=== PATIENT | male | born 1980 | race African-American/Black ===

== ENCOUNTER 2018-05-19 20:04 | Inpatient (IN) | payer OTHER ==
[2018-05-19] MEDS ORDERED: HEPARIN 10,000 UNIT/10 ML MDV (1,000 UNIT/ML) IVP ONE (21:52)
[2018-05-19] MEDS ORDERED: IOPAMIDOL (ISOVUE 370) 100 ML BTL IV ONE (21:53)
--- NOTE | 2018-05-19 21:54 | CPEKG ---
Test Reason : OPEN Blood Pressure : / mmHG Vent. Rate : 082 BPM Atrial Rate : 082 BPM P-R Int : 157 ms QRS Dur : 084 ms QT Int : 357 ms P-R-T Axes : 063 062 048 degrees QTc Int : 417 ms Sinus rhythm Consider left ventricular hypertrophy Confirmed by Wiley Ruiz ([id number]) on 05/19/2018 9:54:35 PM Referred By: Confirmed By:Wiley Ruiz
[2018-05-19] MEDS ORDERED: HEPARIN/DEXTROSE 25,000 UNIT/500 ML BAG ONE (21:56)
[2018-05-19 21:58] LABS: PLATELET COUNT 193 10^3/uL (150-400)
--- NOTE | 2018-05-19 22:00 | EDPHY ---
H & P Stated Complaint: LLE swelling/tightness x 2 days with 1 month of cramping. no injury/pain. Time Seen by Provider: 05/19/18 20:15 HPI/ROS: This patient describes 2 day history of left leg swelling after antecedent few weeks of mild cramping in the leg. He explains that he had a respiratory illness in March around March 31 the when she was bed ridden for few days due to his symptoms hand thereafter has had a persistent feeling of mild chest congestion though the cough is resolved. He noticed mild intermittent cramping his left leg since that time and again significant swelling increased over the past 48 hr. He reports peak intensity leg of 6/10 currently 3/10 at rest. He has never had this occur to him before. He is accompanied by his girlfriend and came here by private vehicle for further evaluation. ROS: Constitutional: No fevers or chills. No fatigue. HEENT: URI symptoms have resolved. No other complaints pulmonary: Feeling of ongoing chest congestion. Denies any coughing or hemoptysis. Had dyspnea for the 1st 10 days or so of his respiratory illness and feels the dyspnea has now nearly resolved. Cardiovascular: No lightheadedness. No heart palpitations. He feels there is slight pink discoloration to the affected lower extremity GI: No nausea vomiting or abdominal pain : No complaints Endocrine: No complaints 10 point review of symptoms is performed and otherwise negative with exception of pertinent positives and negatives listed in HPI and ROS Source: Patient Exam Limitations: No limitations - Personal History Current Tetanus Diphtheria and Acellular Pertussis (TDAP): No - Medical/Surgical History Hx Asthma: No Hx Chronic Respiratory Disease: No Hx Diabetes: No Hx Cardiac Disease: No Hx Renal Disease: No Hx Cirrhosis: No Hx Alcoholism: No Hx HIV/AIDS: No Hx Splenectomy or Spleen Trauma: No Other PMH: htn undiagnosed - Family History Significant Family History: Hypertension (His mother has a history of hypertension), Vascular disease (Patient please his sister had a DVT) - Social History Smoking Status: Never smoked Alcohol Use: Occasionally Drug Use: None - Physical Exam Exam: General Appearance: Pleasant black male Alert, no distress. Eyes: Pupils equal and round no pallor or injection. ENT, Mouth: Mucous membranes moist. Respiratory: There are no retractions, lungs are clear to auscultation. Cardiovascular: Regular rate and rhythm. No murmur gallop rub. He maintains 2 + symmetric femoral and popliteal pulses bilaterally in lower extremities. He has significant edema to the left lower extremity with positive Homans sign mild pitting. The left calf measures 40 cm 10 cm below the tibial tuberosity where as the right calf measures 37 cm in circumference at the same location. Gastrointestinal: Abdomen is soft and nontender, no masses, bowel sounds normal. Neurological: GCS 15 Skin: Warm and dry, no rashes. Musculoskeletal: Neck is supple nontender. Extremities are symmetrical, full range of motion. Psychiatric: Mood and affect are normal DIFFERENTIAL DIAGNOSIS: After history and physical exam differential diagnosis was considered for DVT, PE, lymphoma, hematologic dyscrasias, sickle cell disease Constitutional: Initial Vital Signs Temperature (C) 37.1 C 05/19/18 20:19 Heart Rate 98 05/19/18 20:19 Respiratory Rate 14 05/19/18 20:19 Blood Pressure 155/102 H 05/19/18 20:19 O2 Sat (%) 97 05/19/18 20:19 O2 Delivery Mode Room Air Allergies/Adverse Reactions: No Known Allergies Allergy (Unverified 05/19/18 20:18) Home Medications: Medication Instructions Recorded NK [No Known Home Meds] 05/19/18 Medical Decision Making - Diagnostics EKG Interpretation: 12 lead EKG performed at 9:48 p.m. Indication feeling of congestion in chest with DVT-evaluate for right heart strain Sinus rhythm at 82 Intervals: Normal throughout [place]: P of 63, QRS of 62, T of 48 degrees Borderline for LVH by voltage criteria Overall assessment sinus rhythm with potential ventricular hypertrophy Imaging Results: Imaging Impressions Extremity Venous Study 05/19/18 20:47 Impression: There is incompletely-occlusive clot throughout the left lower leg, from the level of the left common femoral vein to the popliteal vein. Findings were discussed with JENNIFER BARROSO MD at 21:40, on 05/19/2018. Chest/Thorax CTA 05/19/18 21:44 Impression: Moderate-volume pulmonary artery thromboemboli, with the greatest degree of involvement in the left lower lobe. Findings were discussed with JENNIFER BARROSO MD at 22:40, on 05/19/2018. CT angio chest reveals moderate volume pulmonary embolism on the left. No pulmonary infarct. I spoke with Dr. Dirk Smith regarding this finding. Imaging: Discussed imaging studies w/ residential team leader Radiologist (I spoke with Dr. Dirk Smith about patient's ultrasound of lower extremity) ED Course/Re-evaluation: After conversation with the radiologist regarding significant clot burden from proximal common femoral to popliteal and resultant edema in this young active patient. We feel that he would benefit from interventional Radiology consult for potential thrombolysis of this clot in the morning. I reviewed the patient's labs-normal CBC, normal coags, normal basic metabolic panel exception of a borderline potassium of 3.[address] Shaw, hospitalist accepts this patient with plan for heparin overnight and consult with interventional Radiology in the morning. IV heparin 80 milligrams/kilogram I spoke with naun Voist in addition to relate the additional diagnosis of moderate volume pulmonary embolism since this information was not initially available-study pending I spoke with Dr. Shaw. We decided to change the patient to PCU bed given this finding. I counseled patient regarding this finding as well. The patient is stable at the time of transfer by EMS at 11:00 p.m. And I answered all of his questions prior to admission - Data Points Laboratory Results: Laboratory Results 05/19/18 20:52 05/19/18 05/19/18 05/19/18 21:42 20:52 20:52 WBC 6.26 10^3/uL 10^3/uL (3.80-9.50) RBC 4.82 10^6/uL 10^6/uL (4.40-6.38) Hgb 15.6 g/dL g/dL (13.7-17.5) Hct 43.5 % % (40.0-51.0) MCV 90.2 fL fL (81.5-99.8) MCH 32.4 pg pg (27.9-34.1) MCHC 35.9 g/dL g/dL (32.4-36.7) RDW 12.4 % % (11.5-15.2) Plt Count 193 10^3/uL 10^3/uL (150-400) MPV 9.9 fL fL (8.7-11.7) Neut % (Auto) 47.3 % % (39.3-74.2) Lymph % (Auto) 40.4 % % (15.0-45.0) [place] % (Auto) 8.6 % % (4.5-13.0) Eos % (Auto) 2.9 % % (0.6-7.6) Baso % (Auto) 0.5 % % (0.3-1.7) Nucleat RBC Rel Count 0.0 % % (0.0-0.2) Absolute Neuts (auto) 2.96 10^3/uL 10^3/uL (1.70-6.50) Absolute Lymphs (auto) 2.53 10^3/uL 10^3/uL (1.00-3.00) Absolute Monos (auto) 0.54 10^3/uL 10^3/uL (0.30-0.80) Absolute Eos (auto) 0.18 10^3/uL 10^3/uL (0.03-0.40) Absolute Basos (auto) 0.03 10^3/uL 10^3/uL (0.02-0.10) Absolute Nucleated RBC 0.00 10^3/uL 10^3/uL (0-0.01) Immature Gran % 0.3 % % (0.0-1.1) Immature Gran # 0.02 10^3/uL 10^3/uL (0.00-0.10) PT 14.3 SEC SEC (12.0-15.0) INR 1.09 (0.83-1.16) APTT 29.2 SEC SEC (23.0-38.0) POC Sodium 139 mEq/L mEq/L (135-145) POC Potassium 3.2 mEq/L L mEq/L (3.3-5.0) POC Chloride 101.0 mEq/L mEq/L (97-110) POC Total CO2 26 mEq/L mEq/L (22-31) POC BUN 8 mg/dL mg/dL (7-23) POC Creatinine 1.0 mg/dL mg/dL (0.7-1.3) POC Glucose 83 mg/dL mg/dL (70-100) POC Calcium 9.5 mg/dL mg/dL (8.5-10.4) Medications Given: Discontinued Medications Heparin Sodium (Porcine) (Heparin Injection) 0 unit IVP EDNOW ONE Stop: 05/19/18 21:53 Last Admin: 05/19/18 22:02 Dose: 6,000 units Point of Care Test Results: Chemistry 05/19/18 21:42 POC Sodium 139 mEq/L mEq/L (135-145) POC Potassium 3.2 mEq/L L mEq/L (3.3-5.0) POC Chloride 101.0 mEq/L mEq/L (97-110) POC Total CO2 26 mEq/L mEq/L (22-31) POC BUN 8 mg/dL mg/dL (7-23) POC Creatinine 1.0 mg/dL mg/dL (0.7-1.3) POC Glucose 83 mg/dL mg/dL (70-100) POC Calcium 9.5 mg/dL mg/dL (8.5-10.4) Urine Dip Collection Date 05/19/18 Collection Time 21:19 Specific [place] (1.002-1.030) 1.010 PH (5.0-7.5) 6.5 Leukocytes (Negative) Trace Nitrites (Negative) Negative Protein (Negative) Negative Glucose (Negative) Negative Ketones (Negative) Negative Urobilnogen (0.2-1.0 EU) 0.2 Bilirubin (Negative) Negative Blood (Negative) Trace Departure - Departure Disposition: [facility] Acute Clinical Impression: Lower extremity deep venous thrombosis Qualifiers: Affected thrombotic vein of extremity: unspecified vein of extremity Chronicity : acute Laterality: left Qualified Code(s): I82.402 - Acute embolism and thrombosis of unspecified deep veins of left lower extremity Pulmonary embolism Qualifiers: Pulmonary embolism type: other Chronicity: acute Acute cor pulmonale presence: without acute cor pulmonale Qualified Code(s): I26.99 - Other pulmonary embolism without acute cor pulmonale Condition: Good
[2018-05-19 22:06] LABS: INR 1.09 (0.83-1.16); PROTIME(PATIENT) 14.3 SEC (12.0-15.0)
[2018-05-19] MEDS ORDERED: ACETAMINOPHEN 325 MG TAB PO PRN (23:34)
[2018-05-19] MEDS ORDERED: ONDANSETRON DISINTEGRATING 4 MG TAB PO PRN (23:34)
[2018-05-19] MEDS ORDERED: ONDANSETRON 4 MG/2 ML VIAL IVP PRN (23:34)
[2018-05-19] MEDS ORDERED: HEPARIN 10,000 UNIT/10 ML MDV (1,000 UNIT/ML) IVP PRN (23:35)
[2018-05-19] MEDS ORDERED: HEPARIN/DEXTROSE 500 ML IV SCH (23:45)
--- NOTE | 2018-05-20 00:04 | PDGENHP ---
History and Physical - Chief Complaint L leg swelling - History of Present Illness 37 yo M w/ no PMHx presents with L leg swelling. Patient tells me he first noticed L calf discomfort about one month ago. This discomfort came and went over the last several weeks. Then, this week, he began to note leg swelling, which is new. It was the leg swelling that led him to go to the [facility] for evaluation. In the [facility] evaluations revealed a large LLE DVT and also moderate volume pulmonary emboli. The patient denies chest pain or shortness of breath. He also denies trauma, surgery, or prolonged immobilization prior to onset of symptoms. Of note, he does state his sister has a history of blood clots. Case discussed with ED physician Dr. Barroso; records reviewed in EMR. History Information - Allergies/Home Medication List Allergies/Adverse Reactions: No Known Allergies Allergy (Unverified 05/19/18 20:18) Home Medications: NK [No Known Home Meds] 05/19/18 [Last Taken Unknown] I have personally reviewed and updated: family history, medical history - Past Medical History no pertinent PMH - Surgical History Reports: no pertinent surgical hx - Family History Additional family history: Sister has had blood clots - Social History Smoking Status: Never smoked Alcohol Use: Occasionally Drug Use: None Review of Systems Review of Systems: ROS: 10pt was reviewed & negative except for what was stated in HPI & below Physical Exam Physical Exam: Temp Pulse Resp BP Pulse Ox 36.8 C 86 19 125/93 H 95 05/19/18 23:30 05/19/18 23:30 05/19/18 23:30 05/19/18 23:30 05/19/18 23:30 O2 (L/minute) 1 Constitutional: no apparent distress, not in pain Eyes: PERRL, EOMI Ears, Nose, Mouth, Throat: moist mucous membranes, no oral mucosal ulcers Cardiovascular: regular rate and rhythym, no murmur, rub, or gallop, edema (LLE) Respiratory: no respiratory distress, clear to auscultation Gastrointestinal: normoactive bowel sounds, soft, non-tender abdomen Skin: warm, normal color, other (LLE swelling) Musculoskeletal: full muscle strength, no muscle tenderness Neurologic: AAOx3, CN II-XII Intact Psychiatric: interacting appropriately, not anxious Lab Data & Imaging Review 05/19/18 20:52 WBC 6.26 10^3/uL (3.80-9.50) 05/19/18 20:52 RBC 4.82 10^6/uL (4.40-6.38) 05/19/18 20:52 Hgb 15.6 g/dL (13.7-17.5) 05/19/18 20:52 Hct 43.5 % (40.0-51.0) 05/19/18 20:52 MCV 90.2 fL (81.5-99.8) 05/19/18 20:52 MCH 32.4 pg (27.9-34.1) 05/19/18 20:52 MCHC 35.9 g/dL (32.4-36.7) 05/19/18 20:52 RDW 12.4 % (11.5-15.2) 05/19/18 20:52 Plt Count 193 10^3/uL (150-400) 05/19/18 20:52 MPV 9.9 fL (8.7-11.7) 05/19/18 20:52 Neut % (Auto) 47.3 % (39.3-74.2) 05/19/18 20:52 Lymph % (Auto) 40.4 % (15.0-45.0) 05/19/18 20:52 [place] % (Auto) 8.6 % (4.5-13.0) 05/19/18 20:52 Eos % (Auto) 2.9 % (0.6-7.6) 05/19/18 20:52 Baso % (Auto) 0.5 % (0.3-1.7) 05/19/18 20:52 Nucleat RBC Rel Count 0.0 % (0.0-0.2) 05/19/18 20:52 Absolute Neuts (auto) 2.96 10^3/uL (1.70-6.50) 05/19/18 20:52 Absolute Lymphs (auto) 2.53 10^3/uL (1.00-3.00) 05/19/18 20:52 Absolute Monos (auto) 0.54 10^3/uL (0.30-0.80) 05/19/18 20:52 Absolute Eos (auto) 0.18 10^3/uL (0.03-0.40) 05/19/18 20:52 Absolute Basos (auto) 0.03 10^3/uL (0.02-0.10) 05/19/18 20:52 Absolute Nucleated RBC 0.00 10^3/uL (0-0.01) 05/19/18 20:52 Immature Gran % 0.3 % (0.0-1.1) 05/19/18 20:52 Immature Gran # 0.02 10^3/uL (0.00-0.10) 05/19/18 20:52 PT 14.3 SEC (12.0-15.0) 05/19/18 20:52 INR 1.09 (0.83-1.16) 05/19/18 20:52 APTT 29.2 SEC (23.0-38.0) 05/19/18 20:52 POC Sodium 139 mEq/L (135-145) 05/19/18 21:42 POC Potassium 3.2 mEq/L (3.3-5.0) L 05/19/18 21:42 POC Chloride 101.0 mEq/L (97-110) 05/19/18 21:42 POC Total CO2 26 mEq/L (22-31) 05/19/18 21:42 POC BUN 8 mg/dL (7-23) 05/19/18 21:42 POC Creatinine 1.0 mg/dL (0.7-1.3) 05/19/18 21:42 POC Glucose 83 mg/dL (70-100) 05/19/18 21:42 POC Calcium 9.5 mg/dL (8.5-10.4) 05/19/18 21:42 Imaging Review: Imaging Impressions Extremity Venous Study 05/19/18 20:47 Impression: There is incompletely-occlusive clot throughout the left lower leg, from the level of the left common femoral vein to the popliteal vein. Findings were discussed with JENNIFER BARROSO MD at 21:40, on 05/19/2018. Chest/Thorax CTA 05/19/18 21:44 Impression: Moderate-volume pulmonary artery thromboemboli, with the greatest degree of involvement in the left lower lobe. Findings were discussed with JENNIFER BARROSO MD at 22:40, on 05/19/2018. Assessment & Plan Assessment: 37 yo M presents with unprovoked LLE DVT and moderate volume pulmonary emboli. Plan: 1. LLE DVT - US reveals incompletely-occlusive clot throughout the left lower leg, from the level of the left common femoral vein to the popliteal vein. Symptoms have been presents for about a month and worse over the last week with new onset swelling. He denies any precipitation factors such as trauma, surgery , or prolonged immobilization. His sister has a history of blood clots. - Heparin gtt - IR consult placed to consider thrombolysis noting extent of clot 2. Moderate volume pulmonary emboli - Hemodynamically stable and asymptomatic at this time. ECG without signs of R heart strain. - Will check troponin, BNP - Heparin gtt as above Diet - NPO @ CA Code - Full Ppx - Hep gtt Dispo - Admit under observation status
[2018-05-20 04:09] LABS: PLATELET COUNT 206 10^3/uL (150-400)
[2018-05-20] MEDS ORDERED: NALOXONE HCL 0.4 MG/ML INJ IVP PRN (08:00)
[2018-05-20] MEDS ORDERED: ALTEPLASE 2 MG VIAL IVP PRN (08:00)
[2018-05-20] MEDS ORDERED: FLUMAZENIL 0.5 MG/5 ML MDV IVP PRN (08:00)
[2018-05-20] MEDS ORDERED: HEPARIN 10,000 UNIT/10 ML MDV (1,000 UNIT/ML) IVP PRN (08:00)
[2018-05-20] MEDS ORDERED: fentaNYL 100 MCG/2 ML INJ IVP PRN (08:00)
[2018-05-20] MEDS ORDERED: MIDAZOLAM 2 MG/2 ML VIAL IVP PRN (08:00)
--- NOTE | 2018-05-20 12:15 | ASMTCMCOM ---
CM Note CM Note Notes: 05/20/2018 Case Management Note Discussed pt during rounds this morning. Pt girlfriend present in the room. Pt admitted for DVT in left leg and PE. Pt needs PCP. Encouraged pt to consult with insurance to pick a provider that is in network. There are no case management d/c needs identified d/t pt age, family support and employment status. There are no therapy evals ordered at this time. Case Management d/c poc: independent with follow up as directed. Case Management available if needs change. Date Signed: 05/20/2018 12:15 PM Electronically Signed By:Candida Willis RN
--- NOTE | 2018-05-20 13:01 | HOSPPROG ---
Hospitalist Progress Note Assessment/Plan: Healthy 37-year-old man presents with large volume DVT in his left lower extremity with swelling as well as moderate volume PE. He was placed on heparin overnight with some improvement in his swelling. # unprovoked DVT and PE, large volume possibly extending into his iliac vein. Discussed with Dr. Cavazos who will review the of imaging and discussed whether tPA lysis would be beneficial to him given the extent of his DVT. * Consultation with interventional radiology * Continue heparin for now * Plan DC tomorrow depending on findings today. * Will likely move him to either warfarin or a newer anticoagulant. * Anti coag panel pending * He needs to establish care here in town for PCP. Patient will need additional midnight stay given evaluation for possible further treatment of large DVT and PE. Subjective: No chest pain or shortness of breath still has some discomfort in his left lower leg. He believes he has a family history of clots in his mother and sister. Patient new to [facility] and chart review Objective: Vital Signs Temp Pulse Resp BP Pulse Ox 36.6 C 66 16 129/86 H 93 05/20/18 12:31 05/20/18 12:31 05/20/18 12:31 05/20/18 12:31 05/20/18 12:31 Laboratory Results 05/20/18 03:20 05/20/18 03:20 05/19/18 05/20/18 05/21/18 05:59 05:59 05:59 Intake Total 862 Balance 862 PT 14.3 SEC (12.0-15.0) 05/19/18 20:52 INR 1.09 (0.83-1.16) 05/19/18 20:52 - Physical Exam Constitutional: no apparent distress Eyes: PERRL, anicteric sclera Ears, Nose, Mouth, Throat: moist mucous membranes Cardiovascular: regular rate and rhythym, no murmur, rub, or gallop, edema ( Left lower extremity) Respiratory: no respiratory distress, clear to auscultation Gastrointestinal: normoactive bowel sounds Genitourinary: no bladder fullness Skin: warm Musculoskeletal: full muscle strength Neurologic: AAOx3 ICD10 Worksheet Patient Problems: Problems Problem Status Onset Lower extremity deep venous thrombosis Acute Pulmonary embolism Acute
--- NOTE | 2018-05-20 14:08 | PDMN ---
Medical Necessity Medical necessity: MCG : M350 DVT of lower extremities A-4 days: Large volumn DVT in LLE with swelling and mod volumn PE. Doppler shows incompletely- occlusive clot throughout the LLL from level of L common femoral vein to the popliteal vein. Pt on Heparin drip, with IR consult pending, status changed to INPT 05/20/18 for ongoing med nec care of DVT and PE with further eval, tx needed
[2018-05-20] MEDS ORDERED: NALOXONE HCL 0.4 MG/ML INJ ONE (15:08)
[2018-05-20] MEDS ORDERED: FLUMAZENIL 0.5 MG/5 ML MDV IVP ONE (15:09)
[2018-05-20] MEDS ORDERED: fentaNYL 100 MCG/2 ML INJ ONE (15:09)
[2018-05-20] MEDS ORDERED: MIDAZOLAM 2 MG/2 ML VIAL ONE (15:09)
[2018-05-20] MEDS ORDERED: ALTEPLASE 5 MG in NS 100 ML IV SCH (16:00)
[2018-05-20] MEDS ORDERED: IOPAMIDOL (ISOVUE-300) 100 ML BTL ONE (16:01)
[2018-05-20] MEDS ORDERED: PROMETHAZINE HCL 25 MG/ML INJ IVP PRN (17:30)
[2018-05-20] MEDS ORDERED: HEPARIN/DEXTROSE 500 ML IV SCH (17:30)
[2018-05-20] MEDS ORDERED: LORazepam 1 MG TAB PO PRN (17:30)
--- NOTE | 2018-05-20 17:35 | PDRADPN ---
Radiology Procedure Note Date of Procedure: 05/20/18 Radiologist: Simona Cavazos Anesthesia: IV Sedation Pre-op Diagnosis: LLE CLOT Post-op Diagnosis: SAME Indication: EXTENSIVE CLOT ON US Procedure: LT LEG VENOGRAM; CHAO LYSIS Finding(s): Clot burden disproportionate to amount of leg swelling and tenseness. Clot in SFV, but open iliacs. ? May-Thurner. Inf/Abcess present in the surg proc area at time of surgery?: No
[2018-05-20] MEDS: ALTEPLASE 5 MG in NS 100 ML IV SCH (21:37)
[2018-05-21 05:57] LABS: PLATELET COUNT 160 10^3/uL (150-400)
[2018-05-21] MEDS: ALTEPLASE 5 MG in NS 100 ML IV SCH (07:35)
--- NOTE | 2018-05-21 10:46 | HOSPPROG ---
Hospitalist Progress Note Assessment/Plan: Healthy 37-year-old man presents with large volume DVT in his left lower extremity with swelling as well as moderate volume PE. He underwent venogram to assess for possible clot in illiac and had TPA lysis. # unprovoked DVT and PE, large volume possibly extending into his iliac vein. * Await follow up study today per IR * continue heparin/TPA and transition to eliquis when OK with IR * Likely DC in am. Patient will need additional midnight stay given evaluation for possible further treatment of large DVT and PE. DC tomorrow on eliquis, 10 BID for 6 days, then 5 bid. He can follow up with me in clinic if I am part of his insurance. He needs to find PCP. If he is following up with me, let me know and I can help schedule him. Subjective: feeling better, no cp or sob. leg swelling better, but leg feels weird with TPA. Objective: Vital Signs Temp Pulse Resp BP Pulse Ox 36.8 C 76 17 113/74 98 05/21/18 07:55 05/21/18 10:00 05/21/18 10:00 05/21/18 10:00 05/21/18 10:00 Laboratory Results 05/21/18 05:45 05/20/18 05/21/18 05/22/18 05:59 05:59 05:59 Intake Total 1443 Output Total 305 Balance 1138 PT 14.3 SEC (12.0-15.0) 05/19/18 20:52 INR 1.09 (0.83-1.16) 05/19/18 20:52 - Physical Exam Constitutional: no apparent distress, appears nourished Eyes: PERRL Ears, Nose, Mouth, Throat: moist mucous membranes Cardiovascular: regular rate and rhythym, no murmur, rub, or gallop, edema (LLE , mild) Respiratory: no respiratory distress, clear to auscultation Gastrointestinal: normoactive bowel sounds Genitourinary: No persaud in urethra Skin: warm, normal color Neurologic: AAOx3 Psychiatric: interacting appropriately ICD10 Worksheet Patient Problems: Problems Problem Status Onset Lower extremity deep venous thrombosis Acute Pulmonary embolism Acute
[2018-05-21] MEDS ORDERED: IOPAMIDOL (ISOVUE-370) 150 ML BTL IV ONE (15:37)
[2018-05-21] MEDS ORDERED: fentaNYL 100 MCG/2 ML INJ ONE (16:35)
--- NOTE | 2018-05-21 16:44 | PDRADPN ---
Radiology Procedure Note Date of Procedure: 05/21/18 Radiologist: Harrison Riddle Pre-op Diagnosis: DVT Post-op Diagnosis: DVT Indication: S/P Lysis Procedure: F/U lysis; angioplasty Finding(s): Near complete resolution of thrombus with residual clot mid FV successfully angioplatied resulting in wide patency. No angiographic evidence of high grade May-Thurner. No pressure gradient across iliac veins. Inf/Abcess present in the surg proc area at time of surgery?: No
[2018-05-21] MEDS: APIXABAN 5 MG TAB PO SCH (17:58)
[2018-05-21] MEDS ORDERED: APIXABAN 5 MG TAB PO SCH (21:00)
[2018-05-22] MEDS: APIXABAN 5 MG TAB PO SCH (05:50)
--- NOTE | 2018-05-22 05:53 | GCON ---
PULMONARY CRITICAL CARE CONSULTATION REASON FOR CONSULTATION: DVT/pulmonary embolism. HISTORY: The patient is a very pleasant 37-year-old, who presented to [facility] with left leg swelling. Sonya morris was found to have an extensive DVT. CT angiogram showed moderate volume pulmonary embolism. He wa s transferred to [place] for therapy. He had had lower extremity swelling and discomfort in his leg beginning about a month previously. He had no pulmonary symptoms, no shortness of breath, no chest p ain, and no hemoptysis. There is no previous history of thromboembolic disease; however, his sister apparently has a history of blood clots. The patient was evaluated by Interventional Radiology. An EKOS catheter was placed and thrombolytic therapy given. This was initiated yesterday and completed today. On followup this afternoon, there was near complete resolution of thrombus on the left side, but the vein was widely patent after lysis and angioplasty. There was no evidence of a high-grade May-Thurner Syndrome. The catheter was jesika leila. Following this, the patient was returned to the intensive care unit. He felt his leg was signi ficantly better, less swollen, no longer significantly painful. PAST MEDICAL HISTORY: Unremarkable. He has no medical problems, takes no medications. SOCIAL HISTORY: Negative for significant alcohol. Nonsmoker. FAMILY HISTORY: Positive for thromboembolic disease in his sister. Hereditary factors unknown. REVIEW OF SYSTEMS: Negative except as mentioned above. PHYSICAL EXAMINATION: GENERAL: Reveals a pleasant gentleman in no distress. He is lying comfortabl y in bed in the intensive care unit. VITAL SIGNS: Within normal limits. He does not require supple mental oxygen. HEENT: Normal. CHEST: Clear bilaterally. There are no abnormal sounds, no rub. H EART: Regular in rate and rhythm without murmur or gallop. P2 is normal. ABDOMEN: Within normal l imits. EXTREMITIES: The left lower extremity is approximately 1 inch larger than the right, improve d by report. DATABASE/PREVIOUS RADIOLOGIC STUDIES: As outlined above. Hypercoagulability screening values are pe nding including Factor 5 Leiden, antithrombin 3, protein C and S activities, etc. ASSESSMENT: Deep venous thrombosis/pulmonary embolism. The exact etiology for his thromboembolic di sease is unknown. Hypercoagulability panel has been drawn and is pending. Deep venous thrombosis davis s been aggressively treated with catheter directed thrombolysis and angioplasty. He is doing well. Left lower extremity has improved. He has been started on Eliquis. He is now off heparin. PLAN AND RECOMMENDATIONS: Patient will be kept in the intensive care unit tonight. He can be transf erred to the floor tomorrow if he does not go home. Eliquis will be continued. Immobilization as pe r Interventional Radiology. Further plans and recommendations will be made based on his progress over the next 12 hours. /[id number]/MODL
[2018-05-22 06:16] VITALS: BP 115/74
--- NOTE | 2018-05-22 16:31 | PDDCSUM ---
Discharge Summary Discharge Summary: DISCHARGE SUMMARY FOLLOW-UP ITEMS: Anti cardiolipin antibody and prothrombin antibody both pending at time discharge DATE OF ADMISSION: 05/19/2018 DATE OF DISCHARGE: 05/22/2018 DISCHARGE DIAGNOSES: 1. Unprovoked acute deep venous thrombosis and pulmonary embolism, present on admission CONSULTATIONS: Interventional Radiology, Pulmonary Critical Care PROCEDURES / IMAGING: Venogram and tPA lysis left lower extremity CHIEF COMPLAINT: Acute left lower extremity edema SUBJECTIVE: Patient is feeling well at time of discharge, he denies any lower extremity pain PHYSICAL EXAM ON DISCHARGE: Systolic blood pressure 110, heart rate 60, afebrile neck, satting well on room air, alert awake oriented x3, trace left lower extremity edema without any tenderness to palpation, lungs are clear to auscultation bilaterally LABS ON DISCHARGE: Creatinine 0.9 HOSPITAL COURSE BY PROBLEM: The patient presented with an unprovoked left lower extremity extensive clot requiring venogram and tPA lysis by Interventional Radiology. CT angiogram also demonstrated moderate volume pulmonary embolism most extensively in the left lower lobe. He was placed on IV heparin drip which was temporarily held during tPA lysis of adhesions and then re-initiated with a transition to Eliquis prior to discharge. The affected area on his left lower extremity was re-evaluated with repeat angiogram by Interventional Radiology which demonstrated near complete resolution of the thrombus with some residual clot in the mid femoral vein with no angiographic evidence of high-grade May-Thurner and no pressure gradient across the iliac veins. The patient shall be followed up by his primary care provider, established with Dr. Muhammad during this hospitalization, and Eliquis will be continued in the outpatient setting. DISCHARGE MEDICATIONS: Please see official discharge medication reconciliation sheet in chart , Eliquis starter pack prescribed. Recommended Tylenol for pain control, compression stockings, elevation of left lower extremity. Counseled the patient and his regarding activity recommendations as well as bleeding risks. DISCHARGE INSTRUCTIONS: Please follow up with Dr. Muhammad as scheduled. TIME SPENT: Greater than 30 minutes were spent on direct patient care, as well as discharge planning and preparation.
== END 2018-05-22 12:45 | disposition home or self-care (01) | DRG 252 ==
LOC: CED 20:04 → CEDHOLD 22:00 → F2W 23:33 → OBSVTOIN 05-20 13:03 → F2N 05-20 16:53
PROVIDERS: ADMIT Internal Medicine; ATTEND Internal Medicine
DX: I82.412 Acute embolism and thrombosis of left femoral vein (principal); I26.99 Other pulmonary embolism without acute cor pulmonale; Z82.49 Family history of ischemic heart disease and other diseases of the circulatory system
CPT/HCPCS: 71275-PO; 80048-PO; 85220-90; 85300-90; 85303-90; 85306-90; 85520-90; 86147-90; 93971-PO; 96374; C1725; C1757; C1769; C1894; J1644; J2250; J2270; J2310; J2997; J3010; Q9967